=== PATIENT | female | born 1990 | race Caucasian/White ===

== ENCOUNTER 2017-05-04 11:36 | Emergency (ER) | payer SELFPAY ==
[2017-05-04] MEDS ORDERED: EPINEPHrine AMP 1 MG/ML IM ONE (11:38)
[2017-05-04] MEDS ORDERED: Famotidine IV* 10 MG/ML 2 ML (20 mg) IV SLOW PU ONE (11:39)
[2017-05-04] MEDS ORDERED: NS 0.9% 1000 ML* 1,000 ML IV ONE (11:40)
[2017-05-04] MEDS ORDERED: methylPREDNISolone 125 MG* 2 ML VIAL IV ONE (11:40)
[2017-05-04] MEDS ORDERED: Famotidine IV* 10 MG/ML 2 ML (20 mg) ONE (11:41)
--- NOTE | 2017-05-04 11:46 | UC ---
Allergic Reaction HPI - HPI Summary HPI Summary: Pt presents to urgent care with report. Pt reports has a h/o anaphylaxis. Pt states approx 11am ate a cookie with whey protein. States mouth started to feel thick - tongue and lips felt swollen. Pt states she took 50mg Bendaryl just after 11am . PT states tongue improved but states face feels tingling and not itchy, still with chest tightness and back of throat feels full. no difficulty with secretions. No change with voice. Pt was required epi x 3 in the past for anaphylaxis. did not take today LMP 03/24/17 Pt's medications reviewed this visit. - History of Current Complaint Stated Complaint: ALLERGIC REACTION Time Seen by Provider: 05/04/17 11:38 Hx Obtained From: Patient ?: No - lmp 03/24/17 Onset/Duration: Sudden Onset Severity Initially: Moderate Severity Currently: Moderate Associated Signs And Symptoms: Positive: Chest Pain, Throat Tightening. Negative: Abdominal Pain, Cough Wheezing, Diaphoresis, Difficulty Breathing, Nausea, Rash PMH/Surg Hx/FS Hx/Imm Hx Previously Healthy: Yes - Surgical History Surgical History: None - Family History Known Family History: Positive: None - Social History Occupation: Employed Full-time Lives: With Family Alcohol Use: Rare Substance Use Type: None Review of Systems Constitutional: Negative Skin: Negative, Other - face itching ENT: Other - throat fullness Cardiovascular: Other - chest tightness All Other Systems Reviewed And Are Negative: Yes Physical Exam Triage Information Reviewed: Yes Appearance: Well-Appearing, No Pain Distress, Well-Nourished Vital Signs Reviewed: Yes Eye Exam: Normal Eyes: Positive: Conjunctiva Clear ENT Exam: Normal ENT: Positive: Normal ENT inspection, Hearing grossly normal, Pharynx normal, TMs normal, Other: - no intra-oral edema, swelling uvula mildine no facial edema Neck exam: Normal Neck: Positive: Supple, Nontender, No Lymphadenopathy Respiratory Exam: Normal Respiratory: Positive: Chest non-tender, Lungs clear, Normal breath sounds, No respiratory distress, No accessory muscle use Cardiovascular Exam: Normal Cardiovascular: Positive: RRR, No Murmur, Pulses Normal Abdominal Exam: Normal Abdomen Description: Positive: Nontender, No Organomegaly, Soft Bowel Sounds: Positive: Present Musculoskeletal Exam: Normal Musculoskeletal: Positive: Strength Intact Neurological Exam: Normal Neurological: Positive: Alert Psychological Exam: Normal Psychological: Positive: Normal Response To Family Skin Exam: Normal Allergic Reaction Course/Dx - Course Course Of Treatment: Pt well appearing, but states throat fulls tight and chest feels heavy. Pt with h/o anaphylaxis to same trigger. Will give epi IM. IV with saline, pepcid, solumedrol. Will need hospital transfer - d/w pt [facility]. Pt requesting [place]. Spoke to Dr. Wilson - [facility] ED attending - accepting pt in transfer - Differential Dx/Diagnosis Provider Diagnoses: allergic reaction to food Discharge - Discharge Plan Condition: Stable Disposition: TRANS HIGHER LVL OF CARE FAC Referrals: Tao Hdez MD [Primary Care Provider] -
[2017-05-04] MEDS ORDERED: EPINEPHRINE 1 MG/ML 1 ML VIAL ONE (12:20)
== END 2017-05-04 11:52 | disposition short-term general hospital (02) ==
LOC: UCCORT 11:36
DX: T78.1XXA Other adverse food reactions, not elsewhere classified, initial encounter (principal); X58.XXXA Exposure to other specified factors, initial encounter
CPT/HCPCS: 96372; 96374; 96375; 99213; G0463; J0171; J2930

== ENCOUNTER 2017-10-01 08:59 | Emergency (ER) | payer BC ==
[2017-10-01] MEDS ORDERED: RHO D Immune Globulin (HUMAN)* 300 MCG = 1,500 I.U. INJ IM SCH (11:00)
--- NOTE | 2017-10-01 11:22 | RAD ---
Indication: Pelvic pain, bleeding. Real-time sonography of the was performed. There is a single intrauterine gestation in cephalic presentation. There is a posterior placenta without evidence of placenta previa. The edge of the placenta is approximately 2.5 cm from the cervical os. heart activity is present at 130 bpm. movement is noted. Amniotic fluid is within normal limits. The BPD measures 5.5 cm corresponding to gestational age of 22 weeks 5 days. Head circumference measures 19.3 cm corresponding to gestational age of 21 weeks 5 days. Abdominal circumference measures 17.6 cm corresponding to gestational age of 22 weeks 4 days. Femur length measures 3.9 cm corresponding to gestational age of 22 weeks 3 days. The estimated gestational age is 22 weeks 3 days. Estimated weight is 499 g. Limited in anatomy scan was performed. Four-chamber heart is noted. Fluid-filled fundus of the stomach is on the left. 2 kidneys are seen without evidence of hydronephrosis cord insertion into the abdomen is unremarkable. Three-vessel cord is identified. The urinary bladder is unremarkable. The face, nose and lips are unremarkable. IMPRESSION: There is a single intrauterine gestation with a gestational age of 22 weeks 3 days. Normal posterior placenta. Amniotic fluid is within normal limits.
[2017-10-01 13:39] VITALS: BP 112/63
--- NOTE | 2017-10-01 19:36 | ED ---
Jessica Rasheed Thomas, scribed for Gregor Ley MD on 10/01/17 at 1053 . - HPI Summary HPI Summary: The patient is a [id number] year old female complaining of spotting that began last night. She has been having intermittent sharp pains for the last two days. The patient denies cramping. 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 She is Rh negative. - History of Current Complaint Chief Complaint: EDOBProblems Stated Complaint: 22WEEKS PRG SPOTTING Time Seen by Provider: 10/01/17 09:36 Hx Obtained From: Patient Chief Complaint: Other: - Spotting Onset/Duration: Started Days Ago - 1, Still Present Timing: Constant Current Severity: Mild Pain Intensity: 0 Aggravating Factors: Nothing Alleviating Factors: Nothing Associated Signs and Symptoms: Positive: Negative - cramping, Other: - Intermittent sharp pains - Allergies/Home Medications Allergies/Adverse Reactions: Allergies Allergy/AdvReac Type Severity Reaction Status Date / Time WHEY Allergy Anaphylatic Uncoded 10/01/17 10:05 Shock PMH/Surg Hx/FS Hx/Imm Hx Endocrine/Hematology History: Denies: Hx Diabetes Cardiovascular History: Denies: Hx Hypertension Infectious Disease History: No Infectious Disease History: Denies: Traveled Outside the [place] in Last 30 Days - Family History Known Family History: Positive: Hypertension - Social History Alcohol Use: Rare Substance Use Type: Reports: None Smoking Status (MU): Never Smoked Tobacco Review of Systems Negative: Fever Positive: other - Spotting, intermittent sharp pains; NEGATIVE: cramping All Other Systems Reviewed And Are Negative: Yes Physical Exam - Summary Physical Exam Summary: Appearance: The patient is well-nourished in no acute distress and in no acute pain. Skin: The skin is warm and dry and skin color reflects adequate perfusion. HEENT: The head is normocephalic and atraumatic. The pupils are equal and reactive. The conjunctivae are clear and without drainage. Nares are patent and without drainage. Mouth reveals moist mucous membranes and the throat is without erythema and exudate. The external ears are intact. The ear canals are patent and without drainage. The tympanic membranes are intact. Neck: the neck is supple with full range of motion and non-tender. There are no carotid bruits. There is no neck vein distension. Respiratory: Chest is non-tender. Lungs are clear to auscultation and breath sounds are symmetrical and equal. Cardiovascular: Heart is regular rate and rhythm. There is no murmur or rub auscultated. There is no peripheral edema and pulses are symmetrical and equal. Abdomen: The abdomen is soft, gravid, and non-tender. There are normal bowel sounds heard in all four quadrants and there is no organomegaly palpated. Musculoskeletal: There is no back tenderness noted. Extremities are non-tender with full range of motion. There is good capillary refill. There is no peripheral edema or calf tenderness elicited. Neurological: Patient is alert and oriented to person, place and time. The patient has symmetrical motor strength in all four extremities. Cranial nerves are grossly intact. Deep tendon reflexes are symmetrical and equal in all four extremities. Psychiatric: The patient has an appropriate affect and does not exhibit any anxiety or depression. - Physical Exam Triage Information Reviewed: Yes Vital Signs Reviewed: Yes Diagnostics - Vital Signs Vital Signs Temp Pulse Resp BP Pulse Ox 10/01/17 09:05 98.2 F 95 18 130/66 98 - Laboratory Lab Results: Lab Results 10/01/17 Range/Units 10:25 Blood Type Pending Antibody Screen Pending Lab Statement: Any lab studies that have been ordered have been reviewed, and results considered in the medical decision making process. - Additional Comments Diagnostic Additional Comments: Ultrasound Interpreted by radiologist. IMPRESSION: There is a single intrauterine gestation with a gestational age of 22 weeks 3 days. Normal posterior placenta. Amniotic fluid is within normal limits. Dr. Ley has reviewed this report. Re-Evaluation - Re-Evaluation First Eval Re-Evaluation Time: 13:01 Comment: After Rhogam shot, patient will be discharged. Course/Dx - Course Course Of Treatment: Ms. Menjivar is from out of town and is primagravida at 22 weeks. She started spotting mildly today and called her it support technician who recommended that she come in for Rhogam as she is rH neg. Her exam was unremarkable and I spoke with Dr. Lockwood about whether or not to monitor her here and he recommended U/S only and Rhogam. She tolerated these well and was D/C'd in stable condition to F/U with her it support technician tomorrow. - Diagnoses Provider Diagnoses: Vaginal bleeding second trimester - Provider Notifications Discussed Care Of Patient With: Christofer Lockwood Time Discussed With Above Provider: 10:20 Instructed by Provider To: Other - Dr. [place], would like an ultrasound. Discharge - Sign-Out/Discharge Documenting (check all that apply): Discharge - Discharge Plan Condition: Stable Disposition: HOME Patient Education Materials: Dysfunctional Uterine Bleeding (ED) Referrals: [facility] [Outside] Additional Instructions: Call your OB tomorrow morning, 10/02/17, to set up an appointment. Return to the emergency department for any new or worsening symptoms. - Billing Disposition and Condition Condition: STABLE Disposition: HOME The documentation as recorded by the Jessica kohler Thomas accurately reflects the service I personally performed and the decisions made by me, Gregor Ley MD.
== END 2017-10-01 13:37 | disposition home or self-care (01) ==
LOC: ED 08:59
DX: O46.92 Antepartum hemorrhage, unspecified, second trimester (principal); Z3A.22 22 weeks gestation of pregnancy
CPT/HCPCS: 36415; 76815; 86850; 86870; 86880; 86900; 86901; 96372; 99282; J2790